=== PATIENT | male | born 1940 | race Caucasian/White ===

== ENCOUNTER 2017-01-10 09:38 | Outpatient (CLI) | payer MEDICARE, OTHER | END 2017-01-10 09:39 | disposition short-term general hospital (02) | DX: R53.1 Weakness (principal); R07.9 Chest pain, unspecified | CPT/HCPCS: A0425; A0427 ==

== ENCOUNTER 2017-04-13 07:47 | Outpatient (CLI) | payer MEDICARE, OTHER ==
[2017-04-13 13:34] LABS: BASOPHILS % (AUTO) 0.5 %; EOSINOPHILS # (AUTO) 0.2 10^3/uL (0.0-0.7); EOSINOPHILS % (AUTO) 3.2 %; LYMPHOCYTES # (AUTO) 1.6 10^3/uL (1.5-3.5); MEAN CORPUSCULAR HGB CONC 33.4 g/dL (32.0-36.0); MEAN CORPUSCULAR VOLUME 92.9 fL (80.0-94.0); MONOCYTES # (AUTO) 0.8 10^3/uL (0.0-1.0); MONOCYTES % (AUTO) 12.1 %; NEUTROPHILS # (AUTO) 3.7 10^3/uL (1.5-6.6); NEUTROPHILS % (AUTO) 59.2 %; NUCLEATED RED BLOOD CELLS AUTO 0.1 /100WBC; RED BLOOD COUNT 4.53 10^6/uL (4.70-6.10); UNCORRECTED WHITE BLOOD COUNT 6.3 x10^3/uL; WHITE BLOOD COUNT 6.3 x10^3/uL (4.8-10.8)
[2017-04-13 13:36] LABS: ALBUMIN/GLOBULIN RATIO 1.6 (1.0-2.2); BILIRUBIN,TOTAL 0.7 mg/dL (0.2-1.0); CALCIUM 9.3 mg/dL (8.5-10.3); CREATININE 1.1 mg/dL (0.6-1.2); POTASSIUM 4.6 mmol/L (3.5-5.0); TOTAL PROTEIN 6.7 g/dL (6.7-8.2)
== END 2017-04-13 07:48 | disposition home or self-care (01) ==
LOC: LAB.WCP 07:47
PROVIDERS: ATTEND Family Medicine
DX: Z79.899 Other long term (current) drug therapy (principal)
CPT/HCPCS: 36415; 80053; 84153; 85025

== ENCOUNTER 2017-07-12 07:28 | Outpatient (CLI) | payer MEDICARE, OTHER ==
[2017-07-12 14:24] LABS: ALBUMIN/GLOBULIN RATIO 1.5 (1.0-2.2); BILIRUBIN,TOTAL 0.4 mg/dL (0.2-1.0); CALCIUM 9.1 mg/dL (8.5-10.3); POTASSIUM 4.4 mmol/L (3.5-5.0)
== END 2017-07-12 07:29 | disposition home or self-care (01) ==
LOC: LAB.WCP 07:28
PROVIDERS: ATTEND Family Medicine
DX: C61 Malignant neoplasm of prostate (principal); I25.810 Atherosclerosis of coronary artery bypass graft(s) without angina pectoris
CPT/HCPCS: 36415; 80053; 84153

== ENCOUNTER 2017-10-07 12:42 | Outpatient (CLI) | payer MEDICARE, OTHER ==
[2017-10-07 12:43] LABS: BASOPHILS % (AUTO) 0.3 %; EOSINOPHILS # (AUTO) 0.2 10^3/uL (0.0-0.7); EOSINOPHILS % (AUTO) 2.6 %; HGB - HEMOGLOBIN 13.9 g/dL (14.0-18.0); LYMPHOCYTES # (AUTO) 1.6 10^3/uL (1.5-3.5); LYMPHOCYTES % (AUTO) 26.8 %; MEAN CORPUSCULAR HEMOGLOBIN 30.8 pg (27.0-31.0); MEAN CORPUSCULAR VOLUME 93.1 fL (80.0-94.0); MEAN PLATELET VOLUME 11.6 fL (7.4-11.4); MONOCYTES # (AUTO) 0.6 10^3/uL (0.0-1.0); NEUTROPHILS # (AUTO) 3.5 10^3/uL (1.5-6.6); NEUTROPHILS % (AUTO) 60.3 %; NUCLEATED RED BLOOD CELLS AUTO 0.1 /100WBC; RED BLOOD COUNT 4.51 10^6/uL (4.70-6.10); RED CELL DISTRIBUTION WIDTH 13.9 % (12.0-15.0); UNCORRECTED WHITE BLOOD COUNT 5.8 x10^3/uL; WHITE BLOOD COUNT 5.8 x10^3/uL (4.8-10.8)
[2017-10-07 13:00] LABS: ALBUMIN/GLOBULIN RATIO 1.4 (1.0-2.2); BILIRUBIN,TOTAL 0.8 mg/dL (0.2-1.0); BUN - BLOOD UREA NITROGEN 26 mg/dL (6-20); CARBON DIOXIDE - CO2 27 mmol/L (21-32); CHLORIDE 105 mmol/L (101-111); CHOL/HDL RATIO 2.8 (<5.0); CHOLESTEROL 102 mg/dL; CREATININE 1.3 mg/dL (0.6-1.2); GFR - MDRD 53 (>89); GLUCOSE 84 mg/dL (70-100); HDL CHOLESTEROL 37 mg/dL; IRON 100 ug/dL (45-182); LDL/HDL RATIO 1.2 (<3.6); POTASSIUM 4.3 mmol/L (3.5-5.0); PREALBUMIN 21 mg/dL (18-45); SODIUM 137 mmol/L (135-145); TOTAL IRON BINDING CAPACITY 237 ug/dL (250-450); TRANSFERRIN 169 mg/dL (180-329); TRIGLYCERIDES 106 mg/dL; VLDL CHOLESTEROL 21 mg/dL
[2017-10-07 13:41] LABS: PLATELET MORPHOLOGY RARE GIANT PLATELETS (NORMAL)
== END 2017-10-07 12:43 | disposition home or self-care (01) ==
LOC: LAB.WCP 12:42
PROVIDERS: ATTEND Family Medicine
DX: R63.4 Abnormal weight loss (principal); C61 Malignant neoplasm of prostate; I25.810 Atherosclerosis of coronary artery bypass graft(s) without angina pectoris; I48.91 Unspecified atrial fibrillation; K64.9 Unspecified hemorrhoids
CPT/HCPCS: 36415; 80053; 80061; 83540; 84134; 84443; 84466; 85025

== ENCOUNTER 2018-03-24 13:02 | Outpatient (CLI) | payer MEDICARE, OTHER | END 2018-03-24 13:03 | disposition home or self-care (01) | LOC: SC 13:02 | PROVIDERS: ATTEND Internal Medicine Pulmonary Disease | DX: G47.10 Hypersomnia, unspecified (principal); M26.19 Other specified anomalies of jaw-cranial base relationship; I48.0 Paroxysmal atrial fibrillation; I10 Essential (primary) hypertension; Z85.46 Personal history of malignant neoplasm of prostate | CPT/HCPCS: 99203; G0463; 99212 ==

== ENCOUNTER 2018-04-11 07:12 | Outpatient (CLI) | payer MEDICARE, OTHER ==
[2018-04-11 13:34] LABS: BASOPHILS % (AUTO) 0.8 %; EOSINOPHILS # (AUTO) 0.2 10^3/uL (0.0-0.7); EOSINOPHILS % (AUTO) 3.1 %; HGB - HEMOGLOBIN 15.3 g/dL (14.0-18.0); LYMPHOCYTES # (AUTO) 1.8 10^3/uL (1.5-3.5); LYMPHOCYTES % (AUTO) 27.5 %; MEAN CORPUSCULAR HEMOGLOBIN 31.5 pg (27.0-31.0); MEAN CORPUSCULAR VOLUME 95.4 fL (80.0-94.0); MEAN PLATELET VOLUME 10.7 fL (7.4-11.4); MONOCYTES # (AUTO) 0.8 10^3/uL (0.0-1.0); MONOCYTES % (AUTO) 11.7 %; NEUTROPHILS # (AUTO) 3.7 10^3/uL (1.5-6.6); NEUTROPHILS % (AUTO) 56.9 %; PLT - PLATELET COUNT 172 10^3/uL (130-450); RED BLOOD COUNT 4.85 10^6/uL (4.70-6.10); RED CELL DISTRIBUTION WIDTH 13.5 % (12.0-15.0); WHITE BLOOD COUNT 6.5 x10^3/uL (4.8-10.8)
[2018-04-11 13:48] LABS: ALBUMIN 3.9 g/dL (3.2-5.5); ALBUMIN/GLOBULIN RATIO 1.3 (1.0-2.2); BILIRUBIN,TOTAL 0.8 mg/dL (0.2-1.0); CALCIUM 9.2 mg/dL (8.5-10.3); CREATININE 1.1 mg/dL (0.6-1.2)
== END 2018-04-11 07:13 | disposition home or self-care (01) ==
LOC: LAB.WCP 07:12
PROVIDERS: ATTEND Family Medicine
DX: R04.0 Epistaxis (principal); C61 Malignant neoplasm of prostate; R63.4 Abnormal weight loss; I25.810 Atherosclerosis of coronary artery bypass graft(s) without angina pectoris; I48.0 Paroxysmal atrial fibrillation
CPT/HCPCS: 36415; 80053; 84153; 85025

== ENCOUNTER 2018-05-11 19:40 | Outpatient (CLI) | payer MEDICARE, OTHER | END 2018-05-11 19:41 | disposition home or self-care (01) | LOC: SC 19:40 | PROVIDERS: ATTEND Internal Medicine Pulmonary Disease | DX: G47.10 Hypersomnia, unspecified (principal); G47.61 Periodic limb movement disorder | CPT/HCPCS: 95810 ==

== ENCOUNTER 2018-06-08 14:15 | Outpatient (CLI) | payer MEDICARE, OTHER | END 2018-06-08 14:16 | disposition home or self-care (01) | LOC: SC 14:15 | PROVIDERS: ATTEND Nurse Practitioner Family | DX: G47.33 Obstructive sleep apnea (adult) (pediatric) (principal); G47.61 Periodic limb movement disorder | CPT/HCPCS: 99215; G0463; 99212 ==

== ENCOUNTER 2018-07-20 11:08 | Outpatient (CLI) | payer MEDICARE, OTHER | END 2018-07-20 11:09 | disposition home or self-care (01) | LOC: SC 11:08 | PROVIDERS: ATTEND Nurse Practitioner Family | DX: G47.33 Obstructive sleep apnea (adult) (pediatric) (principal) | CPT/HCPCS: 99214; G0463; 99212 ==

== ENCOUNTER 2018-07-26 20:24 | Outpatient (CLI) | payer MEDICARE, OTHER | END 2018-07-26 20:25 | disposition home or self-care (01) | LOC: SC 20:24 | PROVIDERS: ATTEND Internal Medicine Pulmonary Disease | DX: G47.33 Obstructive sleep apnea (adult) (pediatric) (principal); G47.61 Periodic limb movement disorder | CPT/HCPCS: 95811 ==

== ENCOUNTER 2018-09-13 09:11 | Outpatient (CLI) | payer MEDICARE, OTHER | END 2018-09-13 09:12 | disposition home or self-care (01) | LOC: SC 09:11 | PROVIDERS: ATTEND Nurse Practitioner Family | DX: G47.33 Obstructive sleep apnea (adult) (pediatric) (principal); G47.61 Periodic limb movement disorder | CPT/HCPCS: 99215; G0463; 99212 ==

== ENCOUNTER 2018-12-22 07:15 | Outpatient (CLI) | payer MEDICARE, OTHER ==
[2018-12-22 14:12] LABS: BASOPHILS % (AUTO) 0.6 %; EOSINOPHILS # (AUTO) 0.3 10^3/uL (0.0-0.7); EOSINOPHILS % (AUTO) 4.2 %; HGB - HEMOGLOBIN 14.8 g/dL (14.0-18.0); LYMPHOCYTES # (AUTO) 1.9 10^3/uL (1.5-3.5); LYMPHOCYTES % (AUTO) 24.3 %; MEAN CORPUSCULAR HGB CONC 32.4 g/dL (32.0-36.0); MEAN CORPUSCULAR VOLUME 95.4 fL (80.0-94.0); MEAN PLATELET VOLUME 10.8 fL (7.4-11.4); MONOCYTES # (AUTO) 0.8 10^3/uL (0.0-1.0); MONOCYTES % (AUTO) 9.8 %; NEUTROPHILS # (AUTO) 4.7 10^3/uL (1.5-6.6); NEUTROPHILS % (AUTO) 61.1 %; PLT - PLATELET COUNT 166 10^3/uL (130-450); RED BLOOD COUNT 4.77 10^6/uL (4.70-6.10); RED CELL DISTRIBUTION WIDTH 13.2 % (12.0-15.0); WHITE BLOOD COUNT 7.7 x10^3/uL (4.8-10.8)
[2018-12-22 14:49] LABS: ALBUMIN 3.7 g/dL (3.2-5.5); ALBUMIN/GLOBULIN RATIO 1.2 (1.0-2.2); ALKALINE PHOSPHATASE 66 IU/L (42-121); ALT ALANINE AMINOTRANSFERASE 23 IU/L (10-60); AST ASPARTATE AMINOTRANSFERASE 21 IU/L (10-42); BILIRUBIN,TOTAL 0.8 mg/dL (0.2-1.0); BUN - BLOOD UREA NITROGEN 27 mg/dL (6-20); CARBON DIOXIDE - CO2 26 mmol/L (21-32); CHLORIDE 103 mmol/L (101-111); CHOL/HDL RATIO 2.9 (<5.0); CHOLESTEROL 101 mg/dL; CREATININE 1.1 mg/dL (0.6-1.2); GFR - MDRD 64 (>89); GLUCOSE 82 mg/dL (70-100); HDL CHOLESTEROL 35 mg/dL; LDL CHOLESTEROL,CALCULATED 50 mg/dL; LDL/HDL RATIO 1.4 (<3.6); SODIUM 139 mmol/L (135-145); TOTAL PROTEIN 6.8 g/dL (6.7-8.2); VLDL CHOLESTEROL 16 mg/dL
== END 2018-12-22 07:16 | disposition home or self-care (01) ==
LOC: LAB.WCP 07:15
PROVIDERS: ATTEND Family Medicine
DX: I48.0 Paroxysmal atrial fibrillation (principal); I25.810 Atherosclerosis of coronary artery bypass graft(s) without angina pectoris; C61 Malignant neoplasm of prostate
CPT/HCPCS: 36415; 80053; 80061; 83721; 84153; 85025

== ENCOUNTER 2019-05-02 11:06 | Outpatient (CLI) | payer MEDICARE, OTHER | END 2019-05-02 11:07 | disposition home or self-care (01) | LOC: SC 11:06 | PROVIDERS: ATTEND Nurse Practitioner Family | DX: G47.33 Obstructive sleep apnea (adult) (pediatric) (principal) | CPT/HCPCS: 99215; G0463; 99212 ==

== ENCOUNTER 2019-06-14 08:42 | Outpatient (CLI) | payer MEDICARE, OTHER ==
[2019-06-14 09:43] VITALS: BP 110/60
--- NOTE | 2019-06-14 09:43 | SLEEP CARE CONSULTATION ---
Information from patient questionnaire entered by Reina Tarango. I have reviewed and concur with the information entered by Reina Tarango. This document represents the service I personally performed and the decisions made by me, Patrizia Rubio, RN, MSN, YOUTH MINISTER. History of Present Illness Previous diagnosis: Mild, Obstructive Sleep Apnea-Hypopnea Syndrome AHI: 5.6 Reason for CPAP/BiPAP follow up: other (6 week ) Equipment type: BiPAP Equipment obtained from: [facility] Mask style: Nasal Mask brand: Respironics Backup mask available: Yes Last cushion change: 1.5 weeks HPI additional information: Review of past visit was he was to try a chinstrap but had difficulty in getting appointment and fitting for a chinstrap. There was a delay in getting supplies as well for 2 weeks due to paper work issues. On 06/05, patient called to see if needed to reschedule as there was a delay in obtaining chinstrap. However, it was noted on compliance report that his residual AHI was elevated significantly and on review of sleep study again showed longest use of BiPAP and his best apnea control was at 15/9 cmH20 so I had changed on 06/06 to see if any difference. CPAP Compliance Data - Data Reviewed with Patient Average duration of nightly device use: 8.75 Compliance rate %: 100 (30 days) Current pressure setting (cmH2O): 15/9 only past 3 days - was on 10/08 before Humidity settin Heated hose settin Average residual AHI: 26.2 Central apnea: 16.3 Obstructive apnea: 2.6 Hypopnea: 7.3 Average large leak: 1 hr 45 mins Subjective Missed days of use due to: reports: other (due to machine malfunction of crackling noise after the device was turned upside down during patient's sleep. Since it was during May, it took a week for it to be evaluated by [facility]. ) Patient concerns: reports: mask leak noise, nasal congestion (controlled by Zyrtec), dry mouth, nose, throat, epistaxis (has had his whole life when weather changes - sees an ENT uses vaseline which has helped reduce incidence), other (mask dislodging with body adjustment. ). denies: aerophagia, mask discomfort, condensation in mask/hose Observed to snore while using device: No () On therapy, patient: reports: sleeping better, awakening more refreshed (and a little more rested). denies: drowsiness while driving Initial [place] Sleepiness Scale score: 6 Current [place] Sleepiness Scale score: 4 Allergies and Home Medications Known drug allergies: Yes Home medication list reviewed: Yes Allergy and home medication list: Medication List Medication Name (generic/name brand) Strength & Dosage Atorvastatin Calcium 20mg tab one daily Metoprolol Tartrate 25mg tab one half twice daily Lisinopril 10mg tab one daily Aspirin EC 81mg tab one daily Centrum Silver Vitamin Tab one daily Caltrate 600mg tab one every other day Magnesium 250mg tab one every other day Fish Oil 1200mg cap one daily Metamucil 30.9% oral powder One tsp in juice twice daily Docusate Calcium 240mg cap one twice daily prn Hydrocortisone 1% external cream Apply to affected area twice daily prn Zyrtec 10mg tab one daily for allergies Fluticasone nasal spray 50meq 1 spray each nostril twice daily. Allergy List Gatifloxin Tequin Sudafed Physical Exam Blood Pressure: 110/60 Cuff size: regular Heart Rate: 58 O2 Saturation: 95 Height: 5 ft 11 in Weight (kg): 66.315 kg Body Mass Index: 20.4 BMI Classification: Healthy weight Impression and Plan 1. Obstructive Sleep Apnea-Hypopnea Syndrome, mild but with supine AHI of with good treatment compliance and significantly elevated residual AHI. On BiPAP therapy, the patient has better sleep quality and is slightly more rested overall and is pleased with benefit of therapy. As noted above I had the pressure changed last week to pressure used the longest on his titration study with a lower AHI but only a few days of use on new pressure available to review at this visit. Residual AHI is still elevated even with change in pressure. It appears it is related to mask leaks and possible oral venting even though the majority of apneas are central and hypopneas. No centrals noted on this pressure on sleep study. Centrals can be secondary to obstructive apnea or related to too high of pressure. Lower pressures have also shown high centrals on compliance noted on last visit at 12/8cmH20. A chin strap fitting was finally completed but it will not be available until end of this week. Patient it to call me when he obtains so I can check his compliance after a few weeks as my next available appointment is [address] can adjust pressure as needed to reduce residual AHI. For oral dryness, it has been better with higher humidity but still present moderately now. Thus I showed him how to increase the humidity on sample device to 5. If still dryness, he was shown how to reduce heated hose to 2 and printed instructions given on business card. He is to call [facility] or here if unable to change. A better fitting mask will also reduce oral dryness. Better management of dryness will also reduce risk of epitaxis. He is also going to see if body of mask needs to be smaller to fit better. It is hoped the chinstrap will help prevent it from dislodging which can also contribute to mask leaks. If continued mask leaks with chinstrap then a new style mask refitting will be ordered. I ordered at least that the body of mask is rechecked for proper sizing. Patient's apnea severity and rationale for treatment to reduce apnea, improve sleep quality and reduce cardiovascular and cerebrovascular events was reviewed. I also reviewed the benefit of consistent device use of CPAP for hypertension, cardiac disease, arrhythmia. * Continue BiPAP pressure at 15/9 cmH2O * Contact me when obtains chinstrap * Check if body of mask sized correctly. * Order new style of mask refitting if still large mask leaks with chinstrap. * Adjust humidity and heated hose. * Notify me if snoring with mask or feeling that the pressure is too much or too little * Return for follow up in 2 months, or sooner if concerns arise I spent 100% of this [40] minute visit face to face with the patient with greater than 50% of this was spent time counseling the patient and coordination of care.
== END 2019-06-14 08:43 | disposition home or self-care (01) ==
LOC: SC 08:42
PROVIDERS: ATTEND Nurse Practitioner Family
DX: G47.33 Obstructive sleep apnea (adult) (pediatric) (principal)
CPT/HCPCS: 99215; G0463; 99212

== ENCOUNTER 2019-08-24 08:00 | Outpatient (CLI) | payer MEDICARE, OTHER ==
[2019-08-24 12:20] LABS: CHOL/HDL RATIO 3.1 (<5.0); CHOLESTEROL 111 mg/dL; HDL CHOLESTEROL 36 mg/dL; LDL CHOLESTEROL,CALCULATED 58 mg/dL; LDL/HDL RATIO 1.6 (<3.6); VLDL CHOLESTEROL 17 mg/dL
== END 2019-08-24 23:59 | disposition home or self-care (01) ==
LOC: LAB.WCP 08:00
PROVIDERS: ATTEND Family Medicine
DX: I48.0 Paroxysmal atrial fibrillation (principal); C61 Malignant neoplasm of prostate; I25.810 Atherosclerosis of coronary artery bypass graft(s) without angina pectoris; I25.119 Atherosclerotic heart disease of native coronary artery with unspecified angina pectoris; I25.2 Old myocardial infarction
CPT/HCPCS: 36415; 80061; 83721; 84153

== ENCOUNTER 2019-08-31 08:40 | Outpatient (CLI) | payer MEDICARE, OTHER ==
[2019-08-31 09:51] VITALS: BP 108/60
--- NOTE | 2019-08-31 09:51 | SLEEP CARE CONSULTATION ---
Information from patient questionnaire entered by Reina Tarango. I have reviewed and concur with the information entered by Reina Tarango. This document represents the service I personally performed and the decisions made by me, Patrizia Rubio, RN, MSN, SKIDDER LOADER. History of Present Illness Previous diagnosis: Mild (dreamwear with chinstrap), Obstructive Sleep Apnea- Hypopnea Syndrome AHI: 5.6 Reason for CPAP/BiPAP follow up: other (2 month) Equipment type: BiPAP Equipment obtained from: [facility] (having difficulty getting supplies) Mask style: Nasal Mask brand: Respironics Backup mask available: Yes Last cushion change: 1 week ago HPI additional information: Patient feels that his new chinstrap fits much better. The mask is fitting better but body of mask still dislodges. He also changed from a larger nasal cushion to a medium and feels it fits better. The oral dryness is much better but still present moderately. CPAP Compliance Data - Data Reviewed with Patient Average duration of nightly device use: 8.8 Compliance rate %: 98.3 Current pressure setting (cmH2O): 15/9 Humidity settin Heated hose settin Average residual AHI: 33.6 Central apnea: 28.7 Obstructive apnea: 2.9 Hypopnea: 2.0 Average large leak: 17 mins 8 sec Subjective Patient concerns: reports: dry mouth, nose, throat, other (mask dislodging. device dropped and modem was loose one night only ). denies: aerophagia, mask discomfort, air blowing in eyes, mask leak noise, condensation in mask/hose, nasal congestion, epistaxis Observed to snore while using device: No Current pressure setting perceived as: comfortable On therapy, patient: reports: sleeping better (much less nocturia - sleeps well the 1st 4-5 hours and tosses and turns the next few hours and in/ out of sleep. ), awakening more refreshed (slightly), more rested overall (slightly ) Initial [place] Sleepiness Scale score: 6 Current [place] Sleepiness Scale score: 4 Allergies and Home Medications Known drug allergies: Yes (tequin, gatifloxin, sudafed) Home medication list reviewed: Yes Allergy and home medication list: Atorvastatin Calcium 20mg tab one daily Metoprolol Tartrate 25mg tab one half twice daily Lisinopril 10mg tab one daily Aspirin EC 81mg tab one daily Centrum Silver Vitamin Tab one daily Caltrate 600mg tab one every other day Magnesium 250mg tab one every other day Fish Oil 1200mg cap one daily Metamucil 30.9% oral powder One tsp in juice twice daily Docusate Calcium 240mg cap one twice daily prn Hydrocortisone 1% external cream Apply to affected area twice daily prn Zyrtec 10mg tab one daily for allergies Fluticasone nasal spray 50meq 1 spray each nostril twice daily. Allergy List Gatifloxin Jayne Wilhelm Review of Systems Review of systems same as previous: Yes Physical Exam Blood Pressure: 108/60 Cuff size: regular Heart Rate: 58 O2 Saturation: 98 Height: 5 ft 11 in Weight: 151 lb (warmer / heavier clothes) Body Mass Index: 21.0 BMI Classification: Healthy weight Impression and Plan 1. Obstructive Sleep Apnea-Hypopnea Syndrome, mild but moderate in supine position, with good treatment compliance and and elevated residual AHI. On BiPAP therapy, the patient has much better sleep quality and is slightly more rested overall. The residual central AHI is higher and hypopneas lower with better control of mask leaks with use of his new chinstrap. Mask leaks have reduced from 1.75 hours to 17 minutes and continue to increase obstructive and hyponea apneas. To further reduce mask leaks I will order the new [employer] headgear adaptor to prevent mask from dislodging in sleep, especially in his later sleep when he is tossing and turning more after use of bathroom. I will also reduce his BiPAP pressure to 12/8cmH20 which was best pressure noted on titration study with a well fitting mask. I will also confer with Dr. Atkins when [facility] is back [facility] to see if any other recommendations. The patient would like to continue with treatment as he feels he is benefitting even though residual AHI is not at goal. For his oral dryness, I will increase humidity to 5 and heated hose to 2 from mode in office as patient unsure he will complete correctly. Printed instructions were also given for further adjustment if needed. Patient had several questions at end of visit about his BiPAP treatment that were answered to his satisfaction. He has been having difficulty getting supplies, I advised him he could discuss with [facility] if a better method to order or can transfer. He would like to stay with [facility] at this time due to close proximity, thus advised to contact this office if continued problems to see how we could assist him. Patient's apnea severity and rationale for treatment to reduce apnea, improve sleep quality and reduce cardiovascular and cerebrovascular events was reviewed. I also reviewed the benefit of consistent device use of BiPAP for his hypertension, cardiac disease, arrhythmia. * * Change BiPAP pressure to 12/8 cmH2O * headgear adaptor * adjust humidity and heated hose * Confer with Dr Atkins * Notify me if snoring with mask or feeling that the pressure is too much or too little * Attempt to lose weight * Return for follow up in 2 months , or sooner if concerns arise I spent 100% of this 45 minute visit face to face with the patient with greater than 50% of this was spent time counseling the patient and coordination of care of his apnea and treatment. He also has a hearing deficit and wears bilateral hearing aids.
== END 2019-08-31 08:41 | disposition home or self-care (01) ==
LOC: SC 08:40
PROVIDERS: ATTEND Nurse Practitioner Family
DX: G47.33 Obstructive sleep apnea (adult) (pediatric) (principal)
CPT/HCPCS: 99212; 99215

== ENCOUNTER 2019-12-13 09:15 | Outpatient (CLI) | payer MEDICARE, OTHER ==
--- NOTE | 2019-12-13 10:31 | SLEEP CARE CONSULTATION ---
Information from patient questionnaire entered by Ann Moncada. I have reviewed and concur with the information entered by Ann Moncada. This document represents the service I personally performed and the decisions made by me, Patrizia Rubio, RN, MSN, [employer]. History of Present Illness Previous diagnosis: Mild, Obstructive Sleep Apnea-Hypopnea Syndrome AHI: 5.6 Reason for follow up: three month (with pressure change) Equipment type: BiPAP Equipment obtained from: [facility] Mask style: Nasal (Dreamwear with chinstrap) Mask brand: Respironics Last cushion change: 4 days ago Prior sleep studies: Yes HPI additional information: He no longer feels he needs the headgear adaptor as the current mask is staying in place with use of chinstrap. The dry mouth is much better but still present. CPAP Compliance Data - Data Reviewed with Patient Average duration of nightly device use: 9h 13m Compliance rate %: 100 Current pressure setting (cmH2O): 8/12 Humidity settin Heated hose settin Average residual AHI: 32.7 Central apnea: 28.9 Obstructive apnea: 2.5 Hypopnea: 1.3 Average large leak: 6m 47s Subjective Patient concerns: reports: dry mouth, nose, throat (mild with no further drooling the past month), epistaxis (with weather changes - uses vaseline bid as advised by his ENT ). denies: aerophagia, mask discomfort, air blowing in eyes, mask leak noise, condensation in mask/hose, nasal congestion Observed to snore while using device: No (sleeps alone) Current pressure setting perceived as: comfortable On therapy, patient: reports: sleeping better (significantly less nocturia ), awakening more refreshed, being more awake and alert during the day, more rested overall. denies: drowsiness while driving Initial [place] Sleepiness Scale score: 6 Current [place] Sleepiness Scale score: 3 Allergies and Home Medications Known drug allergies: No Home medication list reviewed: Yes (no changes except short term eye medication) Allergy and home medication list: Medication Name (generic/name brand) Strength & Dosage Atorvastatin Calcium 20mg tab one daily Metoprolol Tartrate 25mg tab one half twice daily Lisinopril 10mg tab one daily Aspirin EC 81mg tab one daily Centrum Silver Vitamin Tab one daily Caltrate 600mg tab one every other day Magnesium 250mg tab one every other day Fish Oil 1200mg cap one daily Metamucil 30.9% oral powder One tsp in juice twice daily Docusate Calcium 240mg cap one twice daily prn Hydrocortisone 1% external cream Apply to affected area twice daily prn Zyrtec 10mg tab one daily for allergies Fluticasone nasal spray 50meq 1 spray each nostril twice daily. Allergy List Gatifloxin Tequin Sudafed Review of Systems Review of systems same as previous: No (ulcerated right eye with ointment prescribed and benefit ) Physical Exam Blood Pressure: 132/70 Cuff size: regular Heart Rate: 50 O2 Saturation: 96 Height: 5 ft 11 in Weight: 153 lb 6.4 oz Weight change since last visit: gained 2 pounds Body Mass Index: 21.4 BMI Classification: Healthy weight Impression and Plan 1. Obstructive Sleep Apnea-Hypopnea Syndrome,mild , with good treatment compliance and continued elevation of residual AHI. On CPAP therapy, the patient has better sleep quality and is more rested overall. After review of past sleep study and compliances, to reduce central apnea, I will reduce his BiPAP to 8/4cmH20. The recent pressure change did not reduce centrals as hoped. He is to contact me if pressure change uncomfortable. For mild oral dryness, he can add a product such as smart mouth or biotene or other dry mouth product before bed. His better management of mask and chinstrap has reduced mask leaks significantly and only 7 minutes now and probably the reason his drooling is no longer present. If further leak problems he is to try the headgear adaptor as shown with sample for better fitting mask. In addition, he is to update his chinstrap as it is starting to wear out. Patient's apnea severity and rationale for treatment to reduce apnea, improve sleep quality and reduce cardiovascular and cerebrovascular events was reviewed. I also reviewed the benefit of consistent device use of BiPAP for cardiac disease, arrhythmia. * Change CPAP pressure to 8/4 cmH2O * Notify me if snoring with mask or feeling that the pressure is too much or too little * Try oral dryness products * Call this office if any problems using CPAP * Return for follow up in 2 months , or sooner if concerns arise Time Spent with Patient (minutes): 30 I spent 100% of this visit face to face with the patient with greater than 50% of this was spent time counseling the patient and coordination of care.
[2019-12-13 10:32] VITALS: BP 132/70
== END 2019-12-13 09:16 | disposition home or self-care (01) ==
LOC: SC 09:15
PROVIDERS: ATTEND Nurse Practitioner Family
DX: G47.33 Obstructive sleep apnea (adult) (pediatric) (principal)
CPT/HCPCS: 99214; G0463; 99212

== ENCOUNTER 2020-04-22 08:58 | Outpatient (CLI) | payer MEDICARE, OTHER ==
[2020-04-22 09:46] VITALS: BP 110/70
--- NOTE | 2020-04-22 09:46 | SLEEP CARE CONSULTATION ---
Information from patient questionnaire entered by Reina Tarango. I have reviewed and concur with the information entered by Reina Tarango. This document represents the service I personally performed and the decisions made by me, Patrizia Rubio, RN, MSN, SOLDER MAKING SUPERVISOR. History of Present Illness Service Date and Time: 04/22/2020 0858 Previous diagnosis: Mild, Obstructive Sleep Apnea-Hypopnea Syndrome AHI: 5.6 (in 2018) Reason for follow up: other (4 month with pressure change) Equipment type: BiPAP Equipment obtained from: [facility] Mask style: Nasal Mask brand: Respironics Backup mask available: Yes (old mask) Last cushion change: 3 weeks Prior sleep studies: Yes Year and Where: 2018 - [facility] Type of Sleep Study: Polysomnography CPAP Compliance Data - Data Reviewed with Patient Average duration of nightly device use: 9.1 Compliance rate %: 100 (90 days) Current pressure setting (cmH2O): 8/4 Humidity settin Heated hose settin Average residual AHI: 29.4 Central apnea: 22.9 Obstructive apnea: 2.3 Hypopnea: 4.2 Average large leak: 23 sec Subjective Patient concerns: reports: mask leak noise (mild), dry mouth, nose, throat (mouth - same / intermittently, but better than before with use of mouth wash before bed ), other (chinstrap wearing out and slips out of place. ). denies: aerophagia, mask discomfort, air blowing in eyes, condensation in mask/hose, nasal congestion, epistaxis (history of nose bleed in past prior to CPAP ) Observed to snore while using device: No (single) Current pressure setting perceived as: too low (but previous was more comfortable as easier breathe) On therapy, patient: reports: sleeping better (nocturia is once a night was 4-5 times before PAP ). denies: drowsiness while driving Initial [place] Sleepiness Scale score: 6 (in 2018) Current [place] Sleepiness Scale score: 5 Allergies and Home Medications Home medication list reviewed: No (no changes stated ) Review of Systems Review of systems same as previous: Yes Physical Exam Blood Pressure: 110/70 Cuff size: regular Heart Rate: 63 O2 Saturation: 97 Height: 5 ft 11 in Weight: 150 lb 3.2 oz Body Mass Index: 20.9 BMI Classification: Healthy weight Impression and Plan 1. Obstructive Sleep Apnea-Hypopnea Syndrome, mild but moderate in supine position, with good treatment compliance and severe elevation of residual AHI. The change to a lower pressure increased residual AHI slightly in hypopneas which is consistent with his complaint with feeling the pressures feels too low and is not as comfortable. His previous pressure range of 12/8cmH20 showed high residual as well but both reports show centrals as the majority of apnea. Central apneas can be due to too high of pressure as well as secondary to obstructive apneas. Thus a lower pressure was tried before trying a higher pressure range. He has been waiting to replace kinked hose the past 2 months. It is unclear if this is contributing to his residual AHI. He has another older hose, not kinked that I will have him try until his current hose replaced. An order was written to replace in addition to chinstrap and travel supplies for next 2 months. I reviewed his past reports and his titration results. The optimal BiPAP pressure suggested on titration report was 12/8cmH20 with zero residual. I will also review his data with Dr. Atkins before changing pressure higher for comfort and residual AHI and informed patient who agreed w ith plan. For oral dryness, I will have his heated hose reduced to 1 to allow for more moisture. Instructions will also be given at check out. On CPAP therapy, the patient has better sleep quality and is more rested overall. Patient's apnea severity and rationale for treatment to reduce apnea, improve sleep quality and reduce cardiovascular and cerebrovascular events was reviewed. I also reviewed the benefit of consistent device use of PAP to his cardiac disease and arrhythmia. * * Change BiPAP pressure after conferring with Dr. Dial. * Notify me if snoring with mask or feeling that the pressure is too much or too little * travel RX gwritt * decrease heated hose. * Call this office if any problems using BiPAP * Return for follow up in 2 months , or sooner if concerns arise I reviewed past reports and sleep studies with Dr Atkins. It seems that patient spent most of time in titration study at BiPAP of 15/9cmH20 which seems reasonable as the next pressure range. I conferred with Dr. tAkins and he agreed this is best treatment pressure to try. If still high residual AHI after this pressure change then he advised to repeat the manual titration study. Visit Type: In Office Time Spent with Patient (minutes): 35 Provider Statement: I spent 100% of the Face to Face Visit with the patient with greater than 50% spent counseling the patient and coordination of care.
== END 2020-04-22 08:59 | disposition home or self-care (01) ==
LOC: SC 08:58
PROVIDERS: ATTEND Nurse Practitioner Family
DX: G47.33 Obstructive sleep apnea (adult) (pediatric) (principal)
CPT/HCPCS: 99214; G0463; 99212

== ENCOUNTER 2020-06-05 07:05 | Outpatient (CLI) | payer MEDICARE, OTHER ==
[2020-06-05 12:07] LABS: CALCIUM 9.1 mg/dL (8.5-10.3); CREATININE 1.2 mg/dL (0.6-1.2)
== END 2020-06-05 23:59 | disposition home or self-care (01) ==
LOC: LAB.WCP 07:05
PROVIDERS: ATTEND Family Medicine
DX: J30.9 Allergic rhinitis, unspecified (principal); C61 Malignant neoplasm of prostate; I25.10 Atherosclerotic heart disease of native coronary artery without angina pectoris
CPT/HCPCS: 36415; 80048; 84153

== ENCOUNTER 2020-07-22 11:21 | Outpatient (CLI) | payer MEDICARE, OTHER ==
[2020-07-22 12:29] VITALS: BP 130/70
--- NOTE | 2020-07-22 12:29 | SLEEP CARE CONSULTATION ---
Information from patient questionnaire entered by Reina Tarango. I have reviewed and concur with the information entered by Reina Tarango. This document represents the service I personally performed and the decisions made by me, Patrizia Rubio, RN, MSN, RECORD TESTER. History of Present Illness Service Date and Time: 07/22/2020 1121 Previous diagnosis: Mild, Obstructive Sleep Apnea-Hypopnea Syndrome AHI: 5.6 (in 2018) Reason for follow up: three month (with pressure change) Equipment type: [facility] style: Nasal (Dreamwear) Mask brand: Respironics Backup mask available: Yes Last cushion change: 5-6 weeks ago - rotates with spares [facility] Type of Sleep Study: Polysomnography HPI additional information: Kinked hose was replaced before his trip 3 months ago. He has had to transfer to [facility] as [facility] is no longer supplying CPAP equipment or supplies. Sleep Study - Results Prior sleep studies: Yes [facility] CPAP Compliance Data - Data Reviewed with Patient Average duration of nightly device use: 9 Compliance rate %: 93.3 (90 days) Current pressure setting (cmH2O): 8/4 Humidity settin Heated hose settin Average residual AHI: 30.4 Central apnea: 23.6 Obstructive apnea: 2.5 Hypopnea: 4.3 Average large leak: 5 min 57 sec Subjective Missed days of use due to: reports: other (insufficent supply) Patient concerns: reports: dry mouth, nose, throat (better-described reduction from moderate to mild - uses ACT dry mouth nightly with some benefit/ ), other (having difficulty getting supplies. Transferred to [facility] and ordered new supplies the Wednesday before last with promise to reieve in 5-7 days but still has not recieved. Also his Premium chinstrap velcro is wearing out. ). denies: aerophagia, mask discomfort, air blowing in eyes, mask leak noise, condensation in mask/hose, nasal congestion, epistaxis Observed to snore while using device: No (sleeps alone) Current pressure setting perceived as: comfortable On therapy, patient: reports: sleeping better, being more awake and alert during the day, more rested overall. denies: drowsiness while driving Initial [place] Sleepiness Scale score: 6 (in 2018) Current [place] Sleepiness Scale score: 5 Allergies and Home Medications Known drug allergies: Yes (see list - sudafed) Home medication list reviewed: No (no changes ) Review of Systems Review of systems same as previous: Yes Physical Exam Blood Pressure: 130/70 Cuff size: regular Heart Rate: 61 O2 Saturation: 99 Height: 5 ft 11 in Weight: 147 lb Body Mass Index: 20.5 BMI Classification: Healthy weight Impression and Plan 1. Obstructive Sleep Apnea-Hypopnea Syndrome, mild but moderate supine , with good treatment compliance and severe elevation of residual AHI. On BiPAP therapy, the patient has better sleep quality and is more rested overall. The crimped hose was replaced before his trip 3 months ago and still the residual AHI is elevated in similar range. After review of last note and titration study, I advised changing his BiPAP pressure to 15/9cmH20 as noted in last visit note after conferring with Dr. Atkins. Patient to contact this office if the pressure change in uncomfortable. If the AHI remains elevated, I informed patient that a titration study is recommended but patient voiced at this time does not want completed another study. To reduce oral dryness, he is advised to fill the reservoir to limit indicated as shown on sample device to see if better results as he has been filling only 1/3 or less of indicated amount. He is to dump any remaining water. In addition, he can try lowering the heated hose to 1 to see if more moisture delivered. Verbal instructions given. I will also have [employer] review with patient. In addition, if he does not get his supplies replaced this week as promised by [employer], he is to contact this office. I also showed him how to order supplies online as it appears the velcro on his Chinstrap does not last the 6 months until insurance can replace. I also showed him how his filters can be ordered if more needed than given. Patient's apnea severity and rationale for treatment to reduce apnea, improve sleep quality and reduce cardiovascular and cerebrovascular events was reviewed. I also reviewed the benefit of consistent device use of CPAP for hypertension, cardiac disease, arrhythmia. * * Change BiPAP pressure to 15/9 cmH2O * Notify me if snoring with mask or feeling that the pressure is too much or too little * Implement methods to reduce oral dryness. * Call this office if any problems using CPAP * Return for follow up in 1-2 months , or sooner if concerns arise Visit Type: In Office Time Spent with Patient (minutes): 40 Provider Statement: I spent 100% of the Face to Face Visit with the patient with greater than 50% spent counseling the patient and coordination of care.
== END 2020-07-22 11:22 | disposition home or self-care (01) ==
LOC: SC 11:21
PROVIDERS: ATTEND Nurse Practitioner Family
DX: G47.33 Obstructive sleep apnea (adult) (pediatric) (principal)
CPT/HCPCS: 99214; G0463; 99212

== ENCOUNTER 2020-09-20 12:15 | Outpatient (CLI) | payer MEDICARE, OTHER ==
--- NOTE | 2020-09-20 09:28 | SLEEP CARE CONSULTATION ---
Information from patient questionnaire entered by Reina Tarango. I have reviewed and concur with the information entered by Reina Tarango. This document represents the service I personally performed and the decisions made by me, Patrizia Rubio, RN, MSN, [employer]. History of Present Illness Service Date and Time: 09/20/2020 0900 Previous diagnosis: Mild, Obstructive Sleep Apnea-Hypopnea Syndrome AHI: 5.6 (in 2018) Reason for follow up: one month (with pressure change) Equipment type: BiPAP Equipment obtained from: [employer] Mask style: Nasal Backup mask available: Yes Last cushion change: a week ago Prior sleep studies: Yes Year and Where: 2018 - [facility] Sleep HPI additional information: Reviewed past sleep visits with BiPAP pressure adjustments / results and sleep studies prior to this telephone visit to prepare for visit. CPAP Compliance Data - Data Reviewed with Patient Average duration of nightly device use: 9 hr 11 min Compliance rate %: 96.7 Current pressure setting (cmH2O): 15/9 Humidity settin Heated hose settin Average residual AHI: 32.3 Central apnea: 26.8 Obstructive apnea: 3.9 Hypopnea: 1.6 Average large leak: 14 min 19 sec Subjective Patient concerns: reports: mask leak noise (initially only with higher pressure until can adjust mask appropriately), dry mouth, nose, throat (less dryness symptoms with filling reservoir more as advised - very mild now), other (new Delux chinstrap irritating to skin of sideburns initially, now comfortable - prefers premium chinstrap used in past. ). denies: aerophagia, mask discomfort, air blowing in eyes, condensation in mask/hose, nasal congestion, epistaxis Observed to snore while using device: No Current pressure setting perceived as: comfortable On therapy, patient: reports: sleeping better (sleeping better with higher pressure range), awakening more refreshed, being more awake and alert during the day, more rested overall. denies: drowsiness while driving Initial [place] Sleepiness Scale score: 6 (in 2018) Allergies and Home Medications Home medication list reviewed: No (no changes) Review of Systems Review of systems same as previous: Yes (no changes) Physical Exam Height: 5 ft 11 in Impression and Plan 1. Obstructive Sleep Apnea-Hypopnea Syndrome, mild but moderate in supine position, with good treatment compliance and contined elevation of residual apnea apnea. On BiPAP therapy, the patient has better sleep quality and is more rested overall. Patient states he is actually sleeping better with higher pressure range of 15/9cmH20. Review of titration study showed most sleep on this pressure and included REM sleep time as well. However, the residual AHI is similar to lower pressure of 8/4cmH20. Both pressure ranges show residual AHI is predominately centrals. Periodic breathing is minimal at 7.3 hour. Patients last titration study was in 2018. I again reviewed benefit of another manual titration study but patient again declined. I will again confer with Dr. Atkins. If no changes, then follow up in 6 months. If changes, then follow up in 2 months. Patient will be contacted by office if any changes to treatment plan. He reports he does not like new style of chinstrap but it is doable until can be replaced. Initial irritation of skin at sideburn area now resolved. I advised patient he can buy his preferred chinstrap style online out of pocket but patient declined at this time. His oral dryness is less with adding more water to reservoir and now states manageable. Patient's apnea severity and rationale for treatment to reduce apnea, improve sleep quality and reduce cardiovascular and cerebrovascular events was reviewed. * Continue[ auto] CPAP pressure at 15/9 cmH2O * Consider ordering chinstrap preferance on line * confer with Dr. Atkins. * Notify me if snoring with mask or feeling that the pressure is too much or too little * Call this office if any problems using CPAP * Return for follow up in 6 months , or sooner if concerns arise Visit Type: Telehealth Phone Video Type: Doximity Patient Location: Home Location of Provider: Home Patient agrees and consents to this telehealth visit type: Yes Patient agrees to have their insurance billed: Yes Time Spent with Patient (minutes): 14 Provider Statement: I spent 100% of the Telehealth Phone Call with the patient with greater than 50% spent counseling the patient and coordination of care.
== END 2020-09-20 12:16 | disposition home or self-care (01) ==
LOC: SC 12:15
PROVIDERS: ATTEND Nurse Practitioner Family
DX: G47.33 Obstructive sleep apnea (adult) (pediatric) (principal)

== ENCOUNTER 2020-11-04 10:12 | Outpatient (CLI) | payer MEDICARE, OTHER ==
--- NOTE | 2020-11-04 12:34 | SLEEP CARE CONSULTATION ---
Information from patient questionnaire entered by Reina Tarango. I have reviewed and concur with the information entered by Reina Tarango. This document represents the service I personally performed and the decisions made by me, Elin Atkins MD, [facility]. History of Present Illness Service Date and Time: 11/04/2020 1012 Previous diagnosis: Mild, Obstructive Sleep Apnea-Hypopnea Syndrome AHI: 5.6 (in 2018) Reason for follow up: one month Equipment type: BiPAP Equipment obtained from: [employer] Mask style: Nasal Prior sleep studies: Yes Year and Where: 2018 - [facility] Sleep HPI additional information: HPI: Mr. Love returns today to follow up on the BiPAP therapy. He was diagnosed to have mild obstructive sleep apnea-hypopnea syndrome. The patient wears a nasal mask. He reports using the device nightly and all through the night. The compliance report shows usage in 30 nights out of the past 30 nights, averaging 9.6 hours a night. The > 4 hour compliance rate for the past 30 days is 100%. He complained of no particular problem with the device such as soreness on the face, dry nose, epistaxis, nasal congestion or headache. He thinks that the pressure of 14/11 cmH2O is comfortable. On the BiPAP therapy he notices improvement in his sleep quality, and that he wakes up feeling fresher in the morning and more awake/alert during the day. He does not wake up as often or waking up from his snore like he used to. The average residual AHI is 25.3, mostly central apneas; and average time in large leak per day is 1.5 hours. CPAP Compliance Data - Data Reviewed with Patient Average duration of nightly device use: 9 hr 37 min Compliance rate %: 100 Current pressure setting (cmH2O): 14/11 Humidity settin Heated hose settin Average residual AHI: 25.3 Average large leak: 1 hr 28 min Subjective Patient concerns: reports: dry mouth, nose, throat (Dry mouth) Initial [place] Sleepiness Scale score: 6 (in 2018) Current [place] Sleepiness Scale score: 3 Allergies and Home Medications Drug allergies reviewed: Yes Home medication list reviewed: Yes Review of Systems Review of systems same as previous: Yes Physical Exam Vital signs obtained and entered by: To minimize the risk of COVID-19 exposure, detailed exam was not performed. Height: 5 ft 11 in Weight: 140 lb Body Mass Index: 19.5 BMI Classification: Healthy weight Impression and Plan IMPRESSION: 1. Obstructive Sleep Apnea-Hypopnea Syndrome, mild (AHI was 5.6) with the patient doing well on BiPAP therapy. He has excellent compliance and significant clinical improvement. The current pressure appears ineffective but comfortable. Because of the ongoing large air leak and high central apnea index, I will lower the BiPAP setting to 10/6 cmH2O. PLAN: 1. BiPAP lowered to 10/6 cmH2O via the modem. If he feels that the pressures are too low, he should call us and we will raise it back up. 2. Prescription made for a new chinstrap of his choicea Respironics Premium chinstrap. 4. Return in one year for follow up or earlier if there is any problem with the treatment. Visit Type: In Office Time Spent with Patient (minutes): 15 Provider Statement: I spent 100% of the Face to Face Visit with the patient with greater than 50% spent counseling the patient and coordination of care.
== END 2020-11-04 10:13 | disposition home or self-care (01) ==
LOC: SC 10:12
PROVIDERS: ATTEND Internal Medicine Pulmonary Disease
DX: G47.33 Obstructive sleep apnea (adult) (pediatric) (principal)
CPT/HCPCS: 99213; G0463; 99212

== ENCOUNTER 2020-12-03 07:24 | Outpatient (CLI) | payer MEDICARE, OTHER ==
[2020-12-03 13:03] LABS: BASOPHILS % (AUTO) 0.4 %; EOSINOPHILS # (AUTO) 0.3 10^3/uL (0.0-0.7); EOSINOPHILS % (AUTO) 4.7 %; HGB - HEMOGLOBIN 14.5 g/dL (14.0-18.0); LYMPHOCYTES # (AUTO) 1.6 10^3/uL (1.5-3.5); LYMPHOCYTES % (AUTO) 23.2 %; MEAN CORPUSCULAR HEMOGLOBIN 30.7 pg (27.0-31.0); MEAN CORPUSCULAR HGB CONC 31.3 g/dL (32.0-36.0); MEAN CORPUSCULAR VOLUME 98.3 fL (80.0-94.0); MONOCYTES # (AUTO) 0.8 10^3/uL (0.0-1.0); MONOCYTES % (AUTO) 11.2 %; NEUTROPHILS # (AUTO) 4.2 10^3/uL (1.5-6.6); NEUTROPHILS % (AUTO) 59.4 %; PLT - PLATELET COUNT 197 10^3/uL (130-450); RED BLOOD COUNT 4.72 10^6/uL (4.70-6.10); RED CELL DISTRIBUTION WIDTH 12.8 % (12.0-15.0); WHITE BLOOD COUNT 7.1 x10^3/uL (4.8-10.8)
[2020-12-03 14:34] LABS: ALBUMIN 3.8 g/dL (3.2-5.5); ALBUMIN/GLOBULIN RATIO 1.4 (1.0-2.2); ALKALINE PHOSPHATASE 65 IU/L (42-121); ALT ALANINE AMINOTRANSFERASE 23 IU/L (10-60); AST ASPARTATE AMINOTRANSFERASE 23 IU/L (10-42); BILIRUBIN,TOTAL 0.4 mg/dL (0.2-1.0); BUN - BLOOD UREA NITROGEN 24 mg/dL (6-20); CALCIUM 9.3 mg/dL (8.5-10.3); CARBON DIOXIDE - CO2 27 mmol/L (21-32); CHLORIDE 106 mmol/L (101-111); CHOL/HDL RATIO 3.1 (<5.0); CHOLESTEROL 117 mg/dL; CREATININE 1.2 mg/dL (0.6-1.2); GLUCOSE 88 mg/dL (70-100); HDL CHOLESTEROL 38 mg/dL; LDL CHOLESTEROL,CALCULATED 67 mg/dL; LDL/HDL RATIO 1.8 (<3.6); TOTAL PROTEIN 6.5 g/dL (6.7-8.2); VLDL CHOLESTEROL 12 mg/dL
== END 2020-12-03 23:59 ==
LOC: LAB.WCP 07:24
PROVIDERS: ATTEND Family Medicine
DX: C61 Malignant neoplasm of prostate (principal); I25.810 Atherosclerosis of coronary artery bypass graft(s) without angina pectoris
CPT/HCPCS: 36415; 80053; 80061; 83721; 84153; 84443; 85025

== ENCOUNTER 2021-03-19 08:00 | Outpatient (CLI) | payer MEDICARE, OTHER | END 2021-03-19 23:59 | disposition home or self-care (01) | LOC: LAB.WCP 08:00 | PROVIDERS: ATTEND Internal Medicine | DX: R97.20 Elevated prostate specific antigen [PSA] (principal) | CPT/HCPCS: 36415; 84153 ==

== ENCOUNTER 2021-09-24 08:00 | Outpatient (CLI) | payer MEDICARE, OTHER ==
[2021-09-24 12:18] LABS: ALBUMIN 3.9 g/dL (3.2-5.5); ALBUMIN/GLOBULIN RATIO 1.2 (1.0-2.2); ALKALINE PHOSPHATASE 60 IU/L (42-121); ALT ALANINE AMINOTRANSFERASE 25 IU/L (10-60); AST ASPARTATE AMINOTRANSFERASE 26 IU/L (10-42); BILIRUBIN,TOTAL 0.7 mg/dL (0.2-1.0); BUN - BLOOD UREA NITROGEN 23 mg/dL (6-20); CALCIUM 9.2 mg/dL (8.5-10.3); CARBON DIOXIDE - CO2 29 mmol/L (21-32); CHLORIDE 102 mmol/L (101-111); CHOL/HDL RATIO 3.2 (<5.0); CHOLESTEROL 111 mg/dL; CREATININE 1.2 mg/dL (0.6-1.2); GFR - MDRD 58 (>89); GLUCOSE 86 mg/dL (70-100); HDL CHOLESTEROL 35 mg/dL; LDL CHOLESTEROL,CALCULATED 59 mg/dL; LDL/HDL RATIO 1.7 (<3.6); POTASSIUM 4.6 mmol/L (3.5-5.0); SODIUM 138 mmol/L (135-145); TOTAL PROTEIN 7.1 g/dL (6.7-8.2); TRIGLYCERIDES 87 mg/dL; VLDL CHOLESTEROL 17 mg/dL
[2021-09-24 12:19] LABS: BASOPHILS % (AUTO) 0.5 %; EOSINOPHILS # (AUTO) 0.2 10^3/uL (0.0-0.7); HCT - HEMATOCRIT 46.7 % (42.0-52.0); LYMPHOCYTES # (AUTO) 1.9 10^3/uL (1.5-3.5); LYMPHOCYTES % (AUTO) 25.9 %; MEAN CORPUSCULAR HEMOGLOBIN 31.4 pg (27.0-31.0); MEAN CORPUSCULAR HGB CONC 32.1 g/dL (32.0-36.0); MEAN CORPUSCULAR VOLUME 97.7 fL (80.0-94.0); MEAN PLATELET VOLUME 11.7 fL (7.4-11.4); MONOCYTES # (AUTO) 0.8 10^3/uL (0.0-1.0); MONOCYTES % (AUTO) 10.2 %; NEUTROPHILS # (AUTO) 4.4 10^3/uL (1.5-6.6); NEUTROPHILS % (AUTO) 58.5 %; PLT - PLATELET COUNT 222 10^3/uL (130-450); RED BLOOD COUNT 4.78 10^6/uL (4.70-6.10); RED CELL DISTRIBUTION WIDTH 12.6 % (12.0-15.0); WHITE BLOOD COUNT 7.5 x10^3/uL (4.8-10.8)
[2021-09-24 12:28] LABS: THYROID STIMULATING HORMONE 2.32 uIU/mL (0.34-5.60)
== END 2021-09-24 23:59 ==
LOC: LAB.WCP 08:00
PROVIDERS: ATTEND Internal Medicine
DX: C61 Malignant neoplasm of prostate (principal); I25.10 Atherosclerotic heart disease of native coronary artery without angina pectoris; I48.91 Unspecified atrial fibrillation
CPT/HCPCS: 36415; 80053; 80061; 83721; 84153; 84443; 85025

== ENCOUNTER 2021-11-24 08:52 | Outpatient (CLI) | payer MEDICARE, OTHER ==
[2021-11-24 12:40] VITALS: BP 129/73
--- NOTE | 2021-11-24 12:40 | SLEEP CARE CONSULTATION ---
Information from patient questionnaire entered by Yifan Hines MA. I have reviewed and concur with the information entered by Yifan Hines MA. This document represents the service I personally performed and the decisions made by me, Elin Atkins MD, [facility]. History of Present Illness Service Date and Time: 11/24/2021 0852 Previous diagnosis: Mild, Obstructive Sleep Apnea-Hypopnea Syndrome AHI: 5.6 (in 2018) Reason for follow up: annual (LAST SEEN 11/2020) Equipment type: BiPAP Equipment obtained from: [employer] Mask style: Nasal Prior [facility]: Yes [facility] HPI additional information: Mr. Love returns today to his annual follow up on the BiPAP therapy. He was diagnosed to have mild obstructive sleep apnea-hypopnea syndrome. The patient wears a nasal mask. He reports using the device nightly and all through the night. The compliance report shows usage in 180 nights out of the past 180 nights, averaging 9.1 hours a night. The > 4 hour compliance rate for the past 365 days is 100%. He complained of dryness in his nose and throat. His heated humidifier is only set at 1 and he does not know that he can change the setting. He thinks that the pressure of 10/6 cmH2O is comfortable. On the BiPAP therapy he notices improvement in his sleep quality, and that he wakes up feeling fresher in the morning and more awake/alert during the day. He does not wake up as often or waking up from his snore like he used to. He does not snore at all. The average residual AHI is 24.7 (was 25.3 last year), mostly central apneas; and average time in large leak per day is 1 hour and 21 minutes (was 1.5 hours last year). Sleep Study - Results Prior sleep studies: Yes [facility] CPAP Compliance Data - Data Reviewed with Patient Average duration of nightly device use: 9 HOURS 8 MINUTES Compliance rate %: 100 Current pressure setting (cmH2O): 10/6 Humidity settin Heated hose settin Average residual AHI: 24.7 Average large leak: 1 HOUR 21 MINUTE Subjective Patient concerns: reports: dry mouth, nose, throat Initial [place] Sleepiness Scale score: 6 (in 2018) Current [place] Sleepiness Scale score: 4 (2021) Allergies and Home Medications Drug allergies reviewed: Yes Home medication list reviewed: Yes Review of Systems Review of systems same as previous: Yes Physical Exam Vital signs obtained and entered by: ROSHAN VILLARREAL Blood Pressure: 129/73 (RIGH, PULSE 52) Heart Rate: 53 O2 Saturation: 96 (WITH PAPER MASK) Height: 5 ft 11 in Weight: 308 lb 10.354 oz (WITH CLOTHES) Body Mass Index: 43.0 BMI Classification: Morbidly Obese Impression and Plan IMPRESSION: 1. Obstructive Sleep Apnea-Hypopnea Syndrome, mild (AHI was 5.6) with the patient doing well on BiPAP therapy. He has excellent compliance and significant clinical improvement. The current pressure appears ineffective but comfortable. The lower pressure of 10/6 cmH2O appears to be just as effective as the higher pressures. For his mouth dryness, he should raise the heated humidifier setting which is now only set at 1. I showed him how to do it on our unit. Although, I am not certain he will be able to do it himself at home. The patient is not aware of the [employer] recall. PLAN: 1. BiPAP let at 10/6 cmH2O via the modem. . 2. Turn up the heated humidifier. 3. Reinholds his device with [employer]. I gave him the website to register. 3. Return in one year for follow up or earlier if there is any problem with the treatment. He will be eligible for a new machine then. Follow up with Sleep Care in: 1 year Visit Type: In Office Time Spent with Patient (minutes): 15 Provider Statement: I spent 100% of the Face to Face Visit with the patient with greater than 50% spent counseling the patient and coordination of care.
== END 2021-11-24 08:53 | disposition home or self-care (01) ==
LOC: SC 08:52
PROVIDERS: ATTEND Internal Medicine Pulmonary Disease
DX: G47.33 Obstructive sleep apnea (adult) (pediatric) (principal); E66.01 Morbid (severe) obesity due to excess calories; Z68.41 Body mass index [BMI] 40.0-44.9, adult
CPT/HCPCS: 99212; G0463

== ENCOUNTER 2022-03-16 07:06 | Outpatient (CLI) | payer MEDICARE, OTHER ==
[2022-03-16 11:58] LABS: CALCIUM 9.2 mg/dL (8.5-10.3); CREATININE 1.4 mg/dL (0.6-1.2); POTASSIUM 4.5 mmol/L (3.5-5.0)
== END 2022-03-16 07:07 | disposition home or self-care (01) ==
LOC: LAB.N 07:06
PROVIDERS: ATTEND Internal Medicine
DX: I25.10 Atherosclerotic heart disease of native coronary artery without angina pectoris (principal); C61 Malignant neoplasm of prostate
CPT/HCPCS: 36415; 80048; 84153

== ENCOUNTER 2022-06-03 08:00 | Outpatient (CLI) | payer MEDICARE, OTHER ==
[2022-06-03 12:55] LABS: BASOPHILS % (AUTO) 0.4 %; EOSINOPHILS # (AUTO) 0.1 10^3/uL (0.0-0.7); HCT - HEMATOCRIT 49.1 % (42.0-52.0); HGB - HEMOGLOBIN 15.8 g/dL (14.0-18.0); LYMPHOCYTES # (AUTO) 1.5 10^3/uL (1.5-3.5); LYMPHOCYTES % (AUTO) 14.7 %; MEAN CORPUSCULAR HEMOGLOBIN 31.3 pg (27.0-31.0); MEAN CORPUSCULAR HGB CONC 32.2 g/dL (32.0-36.0); MEAN CORPUSCULAR VOLUME 97.4 fL (80.0-94.0); MONOCYTES # (AUTO) 1.1 10^3/uL (0.0-1.0); MONOCYTES % (AUTO) 10.4 %; NEUTROPHILS # (AUTO) 7.5 10^3/uL (1.5-6.6); NEUTROPHILS % (AUTO) 72.3 %; PLT - PLATELET COUNT 181 10^3/uL (130-450); RED BLOOD COUNT 5.04 10^6/uL (4.70-6.10); RED CELL DISTRIBUTION WIDTH 14.3 % (12.0-15.0); WHITE BLOOD COUNT 10.3 x10^3/uL (4.8-10.8)
[2022-06-03 13:05] LABS: ALBUMIN 3.9 g/dL (3.2-5.5); ALBUMIN/GLOBULIN RATIO 1.3 (1.0-2.2); BILIRUBIN,TOTAL 0.9 mg/dL (0.2-1.0); CALCIUM 9.6 mg/dL (8.5-10.3); CREATININE 1.2 mg/dL (0.6-1.2); POTASSIUM 4.6 mmol/L (3.5-5.0); TOTAL PROTEIN 6.8 g/dL (6.7-8.2)
[2022-06-03 13:14] LABS: THYROID STIMULATING HORMONE 2.33 uIU/mL (0.34-5.60)
== END 2022-06-03 23:59 | disposition home or self-care (01) ==
LOC: LAB.N 08:00
PROVIDERS: ATTEND Family Medicine
DX: I25.10 Atherosclerotic heart disease of native coronary artery without angina pectoris (principal); R06.09 Other forms of dyspnea; I49.9 Cardiac arrhythmia, unspecified; I48.91 Unspecified atrial fibrillation
CPT/HCPCS: 36415; 80053; 83880; 84443; 85025

== ENCOUNTER 2022-08-26 07:11 | Outpatient (CLI) | payer MEDICARE, OTHER ==
[2022-08-26 11:48] LABS: BASOPHILS % (AUTO) 0.6 %; EOSINOPHILS # (AUTO) 0.2 10^3/uL (0.0-0.7); EOSINOPHILS % (AUTO) 2.6 %; HCT - HEMATOCRIT 45.7 % (42.0-52.0); HGB - HEMOGLOBIN 14.7 g/dL (14.0-18.0); LYMPHOCYTES # (AUTO) 1.7 10^3/uL (1.5-3.5); LYMPHOCYTES % (AUTO) 23.3 %; MEAN CORPUSCULAR HEMOGLOBIN 30.9 pg (27.0-31.0); MEAN CORPUSCULAR HGB CONC 32.2 g/dL (32.0-36.0); MEAN PLATELET VOLUME 11.7 fL (7.4-11.4); MONOCYTES # (AUTO) 0.9 10^3/uL (0.0-1.0); MONOCYTES % (AUTO) 12.2 %; NEUTROPHILS # (AUTO) 4.3 10^3/uL (1.5-6.6); PLT - PLATELET COUNT 168 10^3/uL (130-450); RED BLOOD COUNT 4.76 10^6/uL (4.70-6.10); RED CELL DISTRIBUTION WIDTH 14.1 % (12.0-15.0); WHITE BLOOD COUNT 7.2 x10^3/uL (4.8-10.8)
[2022-08-26 12:15] LABS: ALBUMIN/GLOBULIN RATIO 1.3 (1.0-2.2); ALKALINE PHOSPHATASE 65 IU/L (42-121); ALT ALANINE AMINOTRANSFERASE 44 IU/L (10-60); AST ASPARTATE AMINOTRANSFERASE 36 IU/L (10-42); BILIRUBIN,TOTAL 0.9 mg/dL (0.2-1.0); BUN - BLOOD UREA NITROGEN 33 mg/dL (6-20); CALCIUM 9.4 mg/dL (8.5-10.3); CARBON DIOXIDE - CO2 29 mmol/L (21-32); CHLORIDE 102 mmol/L (101-111); CHOL/HDL RATIO 3.3 (<5.0); CHOLESTEROL 134 mg/dL; CREATININE 1.4 mg/dL (0.6-1.2); GFR - MDRD 48 (>89); GLUCOSE 85 mg/dL (70-100); HDL CHOLESTEROL 41 mg/dL; LDL CHOLESTEROL,CALCULATED 76 mg/dL; LDL/HDL RATIO 1.9 (<3.6); POTASSIUM 4.1 mmol/L (3.5-5.0); SODIUM 138 mmol/L (135-145); TOTAL PROTEIN 7.1 g/dL (6.7-8.2); TRIGLYCERIDES 84 mg/dL; VLDL CHOLESTEROL 17 mg/dL
[2022-08-26 12:26] LABS: THYROID STIMULATING HORMONE 3.63 uIU/mL (0.34-5.60)
== END 2022-08-26 07:12 | disposition home or self-care (01) ==
LOC: LAB.N 07:11
PROVIDERS: ATTEND Internal Medicine
DX: C61 Malignant neoplasm of prostate (principal); I48.91 Unspecified atrial fibrillation; Z13.220 Encounter for screening for lipoid disorders; I25.10 Atherosclerotic heart disease of native coronary artery without angina pectoris
CPT/HCPCS: 36415; 80053; 80061; 83721; 84153; 84443; 85025

== ENCOUNTER 2022-11-23 10:44 | Outpatient (CLI) | payer MEDICARE, OTHER ==
[2022-11-23 11:16] VITALS: BP 124/68
--- NOTE | 2022-11-23 11:16 | SLEEP CARE CONSULTATION ---
Information from patient questionnaire entered by Ruchi Parson. I have reviewed and concur with the information entered by Ruchi Parson. This document represents the service I personally performed and the decisions made by me, Elin Atkins MD, [facility]. History of Present Illness Service Date and Time: 11/23/2022 1044 Previous diagnosis: Mild, Obstructive Sleep Apnea-Hypopnea Syndrome AHI: 5.6 (in 2018) Reason for follow up: annual (LAST SEEN 11/2021) Equipment type: BiPAP (SHIPLEY NEED SD CARD) Equipment obtained from: [employer] Mask style: Nasal [facility] HPI additional information: Mr. Love returns today to his annual follow up on the BiPAP therapy. He was diagnosed to have mild obstructive sleep apnea-hypopnea syndrome. The patient wears a nasal mask. He reports using the device nightly and all through the night. The compliance report shows usage in 167 nights out of the past 180 nights, averaging 8.8 hours a night. The > 4 hour compliance rate for the past 180 days is 93%. He complained no particular problem. He thinks that the pressure of 10/6 cmH2O is comfortable. On the BiPAP therapy he notices that he does not have to wake up 5 6 times to urinate during the night. He does not snore at all. The average residual AHI is 30.2 (was 24.7 last year), mostly central apneas; and average time in large leak per day is 2 hour and 8 minutes (was 1.5 hours last year). His BiPAP is not subjected to the recall. Sleep Study - Results Prior sleep studies: Yes [facility] Subjective Initial [place] Sleepiness Scale score: 6 (in 2018) Current [place] Sleepiness Scale score: 10 (11/23/22) Allergies and Home Medications Drug allergies reviewed: Yes Home medication list reviewed: Yes Allergy and home medication list: Allergies gatifloxacin Allergy (Verified 06/06/22 11:31) Unknown Review of Systems Review of systems same as previous: Yes Physical Exam Vital signs obtained and entered by: RUCHI Regalado MA Blood Pressure: 124/68 (LEFT ARM) Cuff size: regular Heart Rate: 54 O2 Saturation: 98 Height: 6 ft Weight: 150 lb 12.8 oz Body Mass Index: 20.4 BMI Classification: Normal Impression and Plan IMPRESSION: 1. Obstructive Sleep Apnea-Hypopnea Syndrome, mild (AHI was 5.6) with the patient doing well on BiPAP therapy. He has excellent compliance and significant clinical improvement. The current pressure appears ineffective but comfortable. He does not want the pressure lowered. I gave him to option of not using the BiPAP because his obstructive sleep apnea-hypopnea is very mild and he has more central apneas on the BiPAP, but he does not want to stop using it. The frequent central apneas could be treatment emerged or secondary to congestive heart failure. At some point, we may want to repeat the diagnostic in-laboratory polysomnography to see if the primary type of the sleep-related breathing disorder remains obstructive sleep apnea-hypopnea. PLAN: 1. BiPAP left at 10/6 cmH2O. 2. Return in June when he is eligible for a new machine. Continue with device pressure at (cmH2O): 10/6 Follow up with Sleep Care in: 6 months Visit Type: In Office Time Spent with Patient (minutes): 15 Provider Statement: I spent 100% of the Face to Face Visit with the patient with greater than 50% spent counseling the patient and coordination of care.
== END 2022-11-23 10:45 | disposition home or self-care (01) ==
LOC: SC 10:44
PROVIDERS: ATTEND Internal Medicine Pulmonary Disease
DX: G47.33 Obstructive sleep apnea (adult) (pediatric) (principal)
CPT/HCPCS: 99212; G0463

== ENCOUNTER 2023-05-07 09:34 | Outpatient (CLI) | payer MEDICARE, OTHER ==
--- NOTE | 2023-05-07 10:04 | Sleep Patient Instructions ---
Sleep Center Visit Summary - Patient Visit Information Reason for Visit: Six month follow up for PAP therapy - Patient Instructions Additional Instructions: You were here for follow up of BIPAP therapy. You will be continued on BiPAP therapy with pressure at 10/6 cmH2O. Please let us know if the pressure change is uncomfortable and we can make further adjustments of the pressure. A prescription to update BIPAP and [facility] They should call you to set this up. Please call us to make follow up appointment once you get your new BIPAP. You should follow up with sleep care in 1 month after obtaining new device. You may contact us sooner for any questions or concerns. - Clinic Information Contact: [facility] [address] [place] [address] [email or web address] T: [phone]
--- NOTE | 2023-05-07 10:16 | SLEEP CARE CONSULTATION ---
Information from patient questionnaire entered by Ruchi Parson. I have reviewed and concur with the information entered by Ruchi Parson. This document represents the service I personally performed and the decisions made by me, Yen Hsu ARNP. History of Present Illness Service Date and Time: 05/07/2023933 Previous diagnosis: Mild, Obstructive Sleep Apnea-Hypopnea Syndrome AHI: 5.6 (in 2018) Reason for follow up: six month (F/U) Equipment type: BiPAP (SHIPLEY Dreamstation NEED SD CARD) Equipment obtained from: [employer] (getting supplies as needed) Mask style: Nasal Mask brand: Respironics (Dreamwear; uses a chinstrap) Backup mask available: Yes (old mask) Last cushion change: last Wednesday, almost a week Prior [facility]: Yes [facility] additional information: RUPINDER SÁNCHZE was diagnosed to have mild, AHI 5.6, obstructive sleep apnea-hypopnea syndrome and returned today for BIPAP therapy six month follow-up. Sleep Study - Results Prior sleep studies: Yes [facility] Compliance Data - Data Reviewed with Patient Average duration of nightly device use: 9 hours 19 minutes Compliance rate %: 100 (60/60 days used) Current pressure setting (cmH2O): 12/6 Average residual AHI: 33.3 Central apnea: 21.3 Obstructive apnea: 3 Hypopnea: 9 Average large leak: 1 hour 51 minutes Subjective Patient concerns: reports: dry mouth, nose, throat. denies: aerophagia, mask discomfort, air blowing in eyes, mask leak noise, condensation in mask/hose, nasal congestion, epistaxis Observed to snore while using device: No Current pressure setting perceived as: comfortable On therapy, patient: reports: sleeping better (sleep deeper), other (reduces times he gets up to the bathroom). denies: drowsiness while driving Initial [place] Sleepiness Scale score: 6 (in 2018) Current [place] Sleepiness Scale score: 7 (05/07/23) Allergies and Home Medications Known drug allergies: Yes (gatifloxacin) Drug allergies reviewed: Yes Home medication list reviewed: Yes (Metoprolol dose changed) Allergy and home medication list: Allergies gatifloxacin Allergy (Verified 05/06/23 09:11) Unknown Review of Systems Review of systems same as previous: Yes (no changes) Physical Exam Vital signs obtained and entered by: RUCHI Regalado MA Blood Pressure: 98/60 (LEFT ARM) Cuff size: regular Heart Rate: 49 O2 Saturation: 99 Height: 6 ft Weight: 148 lb 9.6 oz Body Mass Index: 20.1 BMI Classification: Normal Impression and Plan 1. Obstructive Sleep Apnea-Hypopnea Syndrome, mild, with good treatment compliance and poor apnea control with elevated residual AHI. On BIPAP therapy, he notices deeper sleep and reduced times getting up to the bathroom at night. Patient has elevated residual AHI at 33.3. He has hypopneas are at 9, obstructions 3 and central index at 21.3. I discussed with him changing his settings but he said it was comfortable even though ineffective. He also does have average large leaks to 1 hour and 51 minutes. So, part of his elevation may be due to the large air leaks but his pressure setting is still sub-optimal. Patient does not want a major change of his pressures because he feels it is comfortable. I will adjust to 10\6 cm H2O as documented in Dr. Garcia's note as the pressure he was to continue on and he was okay with this change. The patients pressure will be changed to autoCPAP 10/6 cmH20 for elevation of residual AHI. Patient advised to contact me if pressure change is uncomfortable so that it can be adjusted. Goals for apnea control discussed. He states he discussed with Dr. Garcia that he was eligible for a new device in June and is here to update machine. The patients CPAP is about 5 years old and of reasonable use. Thus, the CPAP will be updated. The new CPAPs also have a better humidity system which could assist control of patients dryness symptoms. A DWO prescription will be made. Compliance guidelines for new device and follow up discussed. I also reviewed the benefit of consistent device use of BIPAP for hypertension, cardiac disease ([place]) and arrhythmia (Afib). Patient's apnea severity and rationale for treatment to reduce apnea, improve sleep quality and reduce cardiovascular and cerebrovascular events was reviewed. * Update machine * Update supplies * Change BIPAP pressure to 10/6 cmH2O * Notify me if snoring with mask or feeling that the pressure is too much or too little * Maintain a healthy weight * Call this office if any problems using BIPAP * Return for follow up one month after obtaining new BIPAP, or sooner if concerns arise * Counseling Topics: Spare mask, Weight control Visit Type: In Office Time Spent with Patient (minutes): 26 Provider Statement: I spent 100% of the Face to Face Visit with the patient with greater than 50% spent counseling the patient and coordination of care.
[2023-05-07 10:21] VITALS: BP 98/60
== END 2023-05-07 09:35 | disposition home or self-care (01) ==
LOC: SC 09:34
PROVIDERS: ATTEND Nurse Practitioner Family
DX: G47.33 Obstructive sleep apnea (adult) (pediatric) (principal)
CPT/HCPCS: 99213; G0463; 99212

== ENCOUNTER 2023-08-06 08:13 | Outpatient (CLI) | payer MEDICARE, OTHER ==
--- NOTE | 2023-08-06 08:41 | Sleep Patient Instructions ---
Sleep Center Visit Summary - Patient Visit Information Reason for Visit: Two month followup - Patient Instructions Additional Instructions: You were here for follow up of BIPAP therapy. You will be continued on BiPAP therapy with pressure at 10/6 cmH2O. You should follow up with sleep care in 12 months. You may contact us sooner for any questions or concerns. - Clinic Information Contact: [facility] [address] [place] [address] [email or web address] T: [phone]
--- NOTE | 2023-08-06 08:43 | SLEEP CARE CONSULTATION ---
Information from patient questionnaire entered by Ruchi Parson. I have reviewed and concur with the information entered by Ruchi Parson. This document represents the service I personally performed and the decisions made by me, Yen Hsu ARNP. History of Present Illness Service Date and Time: 08/06/2023812 Previous diagnosis: Mild, Obstructive Sleep Apnea-Hypopnea Syndrome AHI: 5.6 (in 2018) Reason for follow up: first compliance (SET UP 06/24/23) Equipment type: BiPAP (RESMED AirCurve 10, s/u 06/2023) Equipment obtained from: [employer] (getting supplies as needed) Mask style: Nasal Mask brand: Respironics (Dreamwear) Backup mask available: Yes (old mask) Last cushion change: last Wednesday Prior sleep studies: Yes Year and Where: 2017 - [facility] HPI additional information: RUPINDER SÁNCHEZ was diagnosed to have mild, AHI 5.6, obstructive sleep apnea-hypopnea syndrome and returned today for BIPAP therapy first compliance after updating device follow-up. Sleep Study - Results Prior sleep studies: Yes Year and Where: 2018 - [facility] CPAP Compliance Data - Data Reviewed with Patient Average duration of nightly device use: 9 HRS 44 MINS Compliance rate %: 93 (07/04/23-08/02/23; days used) Current pressure setting (cmH2O): 08/06 Average residual AHI: 10 (unknown 4.8) Central apnea: 4.8 Obstructive apnea: 0 Hypopnea: 0.2 Average large leak: 30.7 L/min Subjective Patient concerns: reports: dry mouth, nose, throat (improving with adjustment of humidifier). denies: aerophagia, mask discomfort, air blowing in eyes, mask leak noise, condensation in mask/hose, nasal congestion, epistaxis Observed to snore while using device: No Current pressure setting perceived as: comfortable On therapy, patient: reports: sleeping better (sleeps deeper), other (if don't use it he is up more for bathroom). denies: drowsiness while driving Initial [place] Sleepiness Scale score: 6 (in 2018) Current [place] Sleepiness Scale score: 4 (08/06/23) Allergies and Home Medications Known drug allergies: Yes (gatifloxacin) Drug allergies reviewed: Yes Home medication list reviewed: Yes (change Amiodarone dose) Allergy and home medication list: Allergies gatifloxacin Allergy (Verified 08/05/23 15:41) Unknown Review of Systems Review of systems same as previous: Yes (NO CHANGE) Physical Exam Vital signs obtained and entered by: RUCHI Regalado MA Blood Pressure: 162/68 (RIGHT) Cuff size: wrist Heart Rate: 47 O2 Saturation: 98 Height: 6 ft Weight: 150 lb 12.8 oz Body Mass Index: 20.4 BMI Classification: Normal Impression and Plan 1. Obstructive Sleep Apnea-Hypopnea Syndrome, mild, with good treatment compliance and fair apnea control with elevated residual AHI. On CPAP therapy, the patient has better sleep quality. The overall residual AHI did reduce with last pressure adjustment. He continues to have large leaks and predominantly central apneas with elevation. His treatment is mildly ineffective but patient feels pressure is comfortable and would like to continue current pressure. He will continue at the 10/6 cmH2O. Patient's apnea severity and rationale for treatment to reduce apnea, improve sleep quality and reduce cardiovascular and cerebrovascular events was reviewed. I also reviewed the benefit of consistent device use of CPAP for hypertension, cardiac disease ([place]), and arrhythmia (Afib). * Continue auto CPAP pressure at 10/6 cmH2O * Notify me if snoring with mask or feeling that the pressure is too much or too little * Maintain a healthy weight * Call this office if any problems using CPAP * Return for follow up in 1 year, or sooner if concerns arise Counseling Topics: Spare mask Follow up with Sleep Care in: 1 year Visit Type: In Office Time Spent with Patient (minutes): 14 Provider Statement: I spent 100% of the Face to Face Visit with the patient with greater than 50% spent counseling the patient and coordination of care.
[2023-08-06 08:45] VITALS: BP 162/68; O2SAT 98
== END 2023-08-06 08:14 | disposition home or self-care (01) ==
LOC: SC 08:13
PROVIDERS: ATTEND Nurse Practitioner Family
DX: G47.33 Obstructive sleep apnea (adult) (pediatric) (principal)
CPT/HCPCS: 99212; G0463

== ENCOUNTER 2023-08-10 07:04 | Outpatient (CLI) | payer MEDICARE, OTHER ==
[2023-08-10 12:21] LABS: BASOPHILS % (AUTO) 0.6 %; EOSINOPHILS # (AUTO) 0.2 10^3/uL (0.0-0.7); EOSINOPHILS % (AUTO) 3.3 %; HCT - HEMATOCRIT 49.4 % (42.0-52.0); HGB - HEMOGLOBIN 15.4 g/dL (14.0-18.0); LYMPHOCYTES # (AUTO) 1.7 10^3/uL (1.5-3.5); LYMPHOCYTES % (AUTO) 26.8 %; MEAN CORPUSCULAR HEMOGLOBIN 31.4 pg (27.0-31.0); MEAN CORPUSCULAR HGB CONC 31.2 g/dL (32.0-36.0); MEAN CORPUSCULAR VOLUME 100.8 fL (80.0-94.0); MEAN PLATELET VOLUME 11.6 fL (7.4-11.4); MONOCYTES # (AUTO) 0.7 10^3/uL (0.0-1.0); NEUTROPHILS # (AUTO) 3.6 10^3/uL (1.5-6.6); PLT - PLATELET COUNT 200 10^3/uL (130-450); RED CELL DISTRIBUTION WIDTH 13.4 % (12.0-15.0); WHITE BLOOD COUNT 6.3 x10^3/uL (4.8-10.8)
[2023-08-10 12:42] LABS: ALBUMIN 4.3 g/dL (3.2-5.5); ALBUMIN/GLOBULIN RATIO 1.6 (1.0-2.2); ALKALINE PHOSPHATASE 67 IU/L (42-121); ALT ALANINE AMINOTRANSFERASE 16 IU/L (10-60); AST ASPARTATE AMINOTRANSFERASE 20 IU/L (10-42); BILIRUBIN,TOTAL 0.6 mg/dL (0.2-1.0); BUN - BLOOD UREA NITROGEN 19 mg/dL (6-20); CALCIUM 9.6 mg/dL (8.5-10.3); CARBON DIOXIDE - CO2 31 mmol/L (21-32); CHLORIDE 106 mmol/L (101-111); CHOL/HDL RATIO 2.5 (<5.0); CHOLESTEROL 126 mg/dL; CREATININE 1.3 mg/dL (0.6-1.3); GFR - MDRD 52 (>89); GLUCOSE 98 mg/dL (74-104); HDL CHOLESTEROL 50 mg/dL; LDL CHOLESTEROL,CALCULATED 61 mg/dL; LDL/HDL RATIO 1.2 (<3.6); POTASSIUM 4.7 mmol/L (3.5-4.5); SODIUM 140 mmol/L (135-145); TRIGLYCERIDES 74 mg/dL (48-352); VLDL CHOLESTEROL 15 mg/dL
== END 2023-08-10 07:05 | disposition home or self-care (01) ==
LOC: LAB.N 07:04
PROVIDERS: ATTEND Internal Medicine
DX: I25.10 Atherosclerotic heart disease of native coronary artery without angina pectoris (principal); I48.0 Paroxysmal atrial fibrillation
CPT/HCPCS: 36415; 80053; 80061; 83721; 84443; 85025

== ENCOUNTER 2023-11-30 07:06 | Outpatient (CLI) | payer MEDICARE, OTHER ==
[2023-11-30 12:36] LABS: BASOPHILS % (AUTO) 0.3 %; EOSINOPHILS # (AUTO) 0.2 10^3/uL (0.0-0.7); EOSINOPHILS % (AUTO) 3.2 %; HCT - HEMATOCRIT 46.4 % (42.0-52.0); HGB - HEMOGLOBIN 14.7 g/dL (14.0-18.0); LYMPHOCYTES # (AUTO) 1.3 10^3/uL (1.5-3.5); LYMPHOCYTES % (AUTO) 21.9 %; MEAN CORPUSCULAR HEMOGLOBIN 31.5 pg (27.0-31.0); MEAN CORPUSCULAR HGB CONC 31.7 g/dL (32.0-36.0); MEAN CORPUSCULAR VOLUME 99.6 fL (80.0-94.0); MONOCYTES # (AUTO) 0.7 10^3/uL (0.0-1.0); MONOCYTES % (AUTO) 11.2 %; NEUTROPHILS # (AUTO) 3.6 10^3/uL (1.5-6.6); NEUTROPHILS % (AUTO) 61.9 %; PLT - PLATELET COUNT 179 10^3/uL (130-450); RED BLOOD COUNT 4.66 10^6/uL (4.70-6.10); RED CELL DISTRIBUTION WIDTH 13.2 % (12.0-15.0); WHITE BLOOD COUNT 5.9 x10^3/uL (4.8-10.8)
[2023-11-30 13:23] LABS: ALBUMIN 3.9 g/dL (3.2-5.5); ALBUMIN/GLOBULIN RATIO 1.6 (1.0-2.2); ALKALINE PHOSPHATASE 65 IU/L (42-121); ALT ALANINE AMINOTRANSFERASE 16 IU/L (10-60); AST ASPARTATE AMINOTRANSFERASE 19 IU/L (10-42); BILIRUBIN,TOTAL 0.6 mg/dL (0.2-1.0); BUN - BLOOD UREA NITROGEN 27 mg/dL (6-20); CALCIUM 9.2 mg/dL (8.5-10.3); CARBON DIOXIDE - CO2 31 mmol/L (21-32); CHLORIDE 107 mmol/L (101-111); CHOL/HDL RATIO 3.7 (<5.0); CHOLESTEROL 123 mg/dL; CREATININE 1.2 mg/dL (0.6-1.3); GFR - MDRD 58 (>89); GLUCOSE 85 mg/dL (74-104); HDL CHOLESTEROL 33 mg/dL; LDL CHOLESTEROL,CALCULATED 68 mg/dL; LDL/HDL RATIO 2.1 (<3.6); POTASSIUM 4.4 mmol/L (3.5-4.5); SODIUM 141 mmol/L (135-145); TOTAL PROTEIN 6.4 g/dL (6.4-8.9); TRIGLYCERIDES 108 mg/dL (48-352); VLDL CHOLESTEROL 22 mg/dL
[2023-11-30 13:24] LABS: THYROID STIMULATING HORMONE 1.52 uIU/mL (0.34-5.60)
== END 2023-11-30 07:07 | disposition home or self-care (01) ==
LOC: LAB.N 07:06
PROVIDERS: ATTEND Internal Medicine
DX: C61 Malignant neoplasm of prostate (principal); I48.0 Paroxysmal atrial fibrillation; I25.10 Atherosclerotic heart disease of native coronary artery without angina pectoris
CPT/HCPCS: 36415; 80053; 80061; 83721; 84153; 84443; 85025

== ENCOUNTER 2024-06-06 08:01 | Outpatient (CLI) | payer MEDICARE, OTHER ==
[2024-06-06 12:24] LABS: ALBUMIN 4.3 g/dL (3.2-5.5); ALBUMIN/GLOBULIN RATIO 1.7 (1.0-2.2); BILIRUBIN,TOTAL 0.8 mg/dL (0.2-1.0); CALCIUM 9.7 mg/dL (8.5-10.3); CREATININE 1.2 mg/dL (0.6-1.3); POTASSIUM 4.6 mmol/L (3.5-4.5); TOTAL PROTEIN 6.9 g/dL (6.4-8.9)
[2024-06-06 12:38] LABS: THYROID STIMULATING HORMONE 1.95 uIU/mL (0.34-5.60)
== END 2024-06-06 08:02 | disposition home or self-care (01) ==
LOC: LAB.N 08:01
PROVIDERS: ATTEND Internal Medicine
DX: C61 Malignant neoplasm of prostate (principal); I50.9 Heart failure, unspecified; I48.0 Paroxysmal atrial fibrillation
CPT/HCPCS: 36415; 80053; 84153; 84443